=== PATIENT | female | born 1950 ===

== ENCOUNTER 2019-03-04 11:17 | Outpatient (CLI) | payer OTHER ==
[~2019-03-04] VITALS: Ht 157.5 cm; Wt 78.9 kg
== END 2019-03-04 11:35 | disposition home or self-care (01) ==
LOC: OFIC 805 11:17
DX: R13.19 Other dysphagia (principal); R22.1 Localized swelling, mass and lump, neck; K21.0 Gastro-esophageal reflux disease with esophagitis

== ENCOUNTER 2019-03-15 07:12 | Outpatient (CLI) | payer OTHER | END 2019-03-15 07:22 | disposition home or self-care (01) | LOC: LAB 07:12 | DX: E03.8 Other specified hypothyroidism (principal) ==

== ENCOUNTER → 2019-07-16 | Outpatient (CLI) | payer OTHER ==
[~2019-07-16] VITALS: Ht 152.4 cm; Wt 78.9 kg
== END | disposition home or self-care (01) ==
LOC: OFIC 805 08:09
DX: K21.0 Gastro-esophageal reflux disease with esophagitis (principal); R13.19 Other dysphagia; R22.1 Localized swelling, mass and lump, neck; E04.2 Nontoxic multinodular goiter